=== PATIENT | female | born 2000 | race Two or more races ===

== ENCOUNTER 2023-03-30 13:38 | Emergency (ER) | payer OTHER ==
[~2023-03-30] VITALS: Ht 160 cm; Wt 65.8 kg
[2023-03-30] MEDS ORDERED: PEPCID AC20 MG PO (19:02)
[2023-03-30] MEDS ORDERED: ONDANSETRON ODT8 MG PO (19:02)
== END 2023-03-30 19:37 | disposition home or self-care (01) ==
LOC: ER 13:38 → EMR PED 13:38 → ER 13:44
DX: K52.89 Other specified noninfective gastroenteritis and colitis (principal); R11.2 Nausea with vomiting, unspecified; Z88.8 Allergy status to other drugs, medicaments and biological substances